=== PATIENT | female | born 1975 | race Caucasian/White ===

== ENCOUNTER 2018-04-13 03:20 | Emergency (ER) | payer SELFPAY ==
[2018-04-13] MEDS ORDERED: Adacel (T-DAP) 0.5 ML VIAL ONE (03:57)
[2018-04-13] MEDS ORDERED: Lidocaine 1% w/Epinephrine 1:100K 20 ML VIAL ONE (03:57)
[2018-04-13] MEDS ORDERED: Acetaminophen 500 MG TAB ONE (05:09)
--- NOTE | 2018-04-13 09:15 | RAD ---
TWO VIEWS RIGHT TIBIA AND FIBULA: HISTORY: Fall. Pain. COMPARISON: None. FINDINGS: No radiopaque foreign body. No fracture. No cortical irregularity or periosteal reaction. Soft tis dorota injury in the lateral aspect of the right lower extremity is noted. IMPRESSION: Soft tissue injury. No radiopaque foreign body. No fracture. POS: [facility]
== END 2018-04-13 05:14 | disposition home or self-care (01) ==
LOC: ERS 03:20
DX: S81.811A Laceration without foreign body, right lower leg, initial encounter (principal); E03.9 Hypothyroidism, unspecified; F17.210 Nicotine dependence, cigarettes, uncomplicated; W25.XXXA Contact with sharp glass, initial encounter
CPT/HCPCS: 12034; 90471; 90715; J2001

== ENCOUNTER 2018-05-07 15:39 | Emergency (ER) | payer SELFPAY | END 2018-05-07 17:21 | disposition home or self-care (01) | LOC: SCSER 15:39 | DX: S81.811D Laceration without foreign body, right lower leg, subsequent encounter (principal); E03.9 Hypothyroidism, unspecified; F17.210 Nicotine dependence, cigarettes, uncomplicated; Z71.6 Tobacco abuse counseling; W25.XXXD Contact with sharp glass, subsequent encounter | CPT/HCPCS: 99406 ==

== ENCOUNTER 2018-12-18 09:33 | Outpatient (CLI) | payer MEDICAID | END 2018-12-18 09:34 | disposition home or self-care (01) | LOC: BICMAMMO 09:33 | PROVIDERS: ATTEND Specialist | DX: Z12.31 Encounter for screening mammogram for malignant neoplasm of breast (principal); Z80.3 Family history of malignant neoplasm of breast | CPT/HCPCS: 77067 ==

== ENCOUNTER 2018-12-23 09:52 | Outpatient (CLI) | payer MEDICAID | END 2018-12-23 09:53 | disposition home or self-care (01) | LOC: BICMAMMO 09:52 | PROVIDERS: ATTEND Specialist | DX: R92.2 Inconclusive mammogram (principal); N64.89 Other specified disorders of breast; Z80.3 Family history of malignant neoplasm of breast | CPT/HCPCS: G0279 ==

== ENCOUNTER 2019-04-06 15:44 | Emergency (ER) | payer MEDICAID | END 2019-04-06 16:24 | disposition home or self-care (01) | LOC: SCSER 15:44 | DX: K05.00 Acute gingivitis, plaque induced (principal); K02.9 Dental caries, unspecified; E03.9 Hypothyroidism, unspecified; F41.9 Anxiety disorder, unspecified; Z79.899 Other long term (current) drug therapy | CPT/HCPCS: 99282 ==

== ENCOUNTER 2019-09-22 14:32 | Emergency (ER) | payer SELFPAY ==
[2019-09-22 15:12] LABS: Bilirubin Negative (Negative); Blood, Urine Trace (Negative); Clarity Clear (Clear); Glucose, Urine (Dipstick) Negative (Negative); Leukocyte Negative (Negative); Nitrite Negative (Negative); Protein, Urine (Dipstick) Negative (Neg-Trace); Urobilinogen 0.2 mg/dL (Less than 2)
[2019-09-22 15:13] LABS: RBC/HPF 0-3 HPF (0-3); WBC/HPF None Seen HPF (0-3)
[2019-09-22 15:14] LABS: Bacteria/HPF Rare-Few HPF (None Seen); Pregnancy Test - Urine (BHCG) Negative (Negative); Pregu Control Background? CLEAR/WHITE (CLR/WHITE); Pregu Control Bar Appear? YES (CONTROL BAR)
--- NOTE | 2019-09-22 16:59 | CT ---
CT ABDOMEN AND PELVIS WITHOUT CONTRAST: History: Blood in the urine, right sided back pain. FINDINGS: Absence of oral and IV contrast reduces the sensitivity of the exam, particularly for evaluation of s olid organs and bowel. The lung bases are unremarkable. No calcified gallstones are seen. No free air or free fluid is noted in the abdomen or pelvis. Uterus and ovaries are present. A normal appearing appendix is noted. There are vascular calcifications without evidence of aneurysmal dilatation of the abdominal aorta. T here are mild degenerative changes in the lower lumbar spine. No calculi are seen in the kidneys, ureters, or the urinary bladder. There is bilateral hydroureter. No hydronephrosis is seen. IMPRESSION: Bilateral hydroureter without obstructing calculus. Further evaluation with IVP would be helpful. POS: OFF
== END 2019-09-22 16:58 | disposition home or self-care (01) ==
LOC: SCSER 14:32
DX: M54.5 Low back pain (principal); E03.9 Hypothyroidism, unspecified; F41.9 Anxiety disorder, unspecified; F17.210 Nicotine dependence, cigarettes, uncomplicated; Z79.899 Other long term (current) drug therapy
CPT/HCPCS: 74176; 81003; 81015; 81025